=== PATIENT | male | born 1955 | race Caucasian/White ===

== ENCOUNTER 2022-04-07 21:42 | Emergency (ER) | payer BC ==
[~2022-04-07 21:42] MED LIST: ACCUPRIL20 MG PO; BAYER BACK & BODY PO; COQ-10100 MG PO; EQUATE MULTI VIT PO; FLOMAX 0.4 MG0.4 MG PO; FLOMAX0.4 MG PO; FLONASE 0.05% N16 GM; GLIMEPIRIDE4 MG PO; MAGNESIUM400 M2 PO; MEDROL DOSEPAK 24 MG PO; METFORMIN HCL500 MG PO; NEXIUM20 MG PO; PERCOCET 5/325 T1 EA PO; POTASSIUM99 M1 PO; VIT B12 PO; VIT D3 PO; ZOFRAN ODT 4 MG4 MG PO; [UNRECOGNIZED DRUG - OTHER] PO
[2022-04-07 22:20] LABS: HEMOGLOBIN 14.5 gm/dl (14.0-17.5); RED BLOOD COUNT 5.15 M/UL (4.20-5.50); WHITE BLOOD COUNT 13.1 K/UL (4.5-11.0)
[2022-04-07 22:50] LABS: BUN/CREATININE RATIO 28 (0-10)
[2022-04-07] MEDS ORDERED: ZOFRAN ODT 4 MG4 MG SL (23:58)
[2022-04-07] MEDS ORDERED: HYDROCODON-ACE1 EAC4 PO (23:58)
== END 2022-04-08 00:50 | disposition home or self-care (01) ==
LOC: ER1 21:42
PROVIDERS: Nurse Practitioner
DX: N13.2 Hydronephrosis with renal and ureteral calculous obstruction (principal); I10 Essential (primary) hypertension; E11.9 Type 2 diabetes mellitus without complications; Z79.82 Long term (current) use of aspirin; Z88.0 Allergy status to penicillin; Z88.1 Allergy status to other antibiotic agents; Z88.2 Allergy status to sulfonamides
CPT/HCPCS: 80053; 81001; 85025; 87086; 96374; 96375; 96376; 99284; J1885; J2270; J2405